=== PATIENT | female | born 1970 | race Caucasian/White ===

== ENCOUNTER 2018-01-22 15:41 | Emergency (ER) | payer MEDICAID ==
[~2018-01-22] VITALS: Ht 162.6 cm; Wt 65.4 kg
[2018-01-22 15:46] VITALS: BP 150/81
[2018-01-22 17:04] LABS: BASOPHILS # (AUTO) 0.1 K/uL (0.00-0.22); EOSINOPHILS # (AUTO) 0.1 K/uL (0-0.4); EOSINOPHILS % (AUTO) 0.6 % (0.0-4.0); HEMATOCRIT 32.7 % (36-48); HEMOGLOBIN 10.1 g/dL (12.0-16.0); LYMPHOCYTES # (AUTO) 2.2 K/uL (2.5-16.5); LYMPHOCYTES % (AUTO) 27.3 % (20.5-51.1); MEAN CORPUSCULAR HEMOGLOBIN 21 pg (27-31); MEAN CORPUSCULAR HGB CONC 31 g/dL (33-37); MEAN CORPUSCULAR VOLUME 68.7 fL (80-94); MONOCYTES # (AUTO) 0.5 K/uL (0.8-1.0); MONOCYTES % (AUTO) 6.6 % (1.7-9.3); NEUTROPHILS # (AUTO) 5.3 K/uL (1.8-7.7); NEUTROPHILS % (AUTO) 64.5 % (42.2-75.2); PLATELET COUNT (AUTO) 340 K/uL (140-450); RED BLOOD CELL COUNT(AUTO) 4.76 MIL/uL (4.20-5.40); RED CELL DISTRIBUTION WIDTH 17.9 % (11.6-13.7); WHITE BLOOD COUNT (AUTO) 8.2 K/uL (4.8-10.8)
[2018-01-22 17:08] LABS: CARBON DIOXIDE 26.1 mmol/L (21-32); CREATININE 0.7 mg/dL (0.6-1.3); POTASSIUM 4.1 mmol/L (3.5-5.1)
[2018-01-22] MEDS: KETOROLAC 30 MG/ML VIAL IVP ONE (17:11)
[2018-01-22] MEDS: NACL 0.9% 500 ML IV ONE (17:12)
[2018-01-22 17:14] LABS: ALBUMIN 3.7 g/dL (3.4-5.0); TOTAL BILIRUBIN 0.2 mg/dL (0.0-1.0)
[2018-01-22 17:54] VITALS: BP 140/80
== END 2018-01-22 17:54 | disposition home or self-care (01) ==
LOC: MED 15:41
DX: R10.9 Unspecified abdominal pain (principal)
CPT/HCPCS: 36415; 74176; 80053; 81002; 81025; 83690; 85025; 96374; 99284; J1885; J7030